=== PATIENT | female | born 1995 | race Caucasian/White ===

== ENCOUNTER 2022-11-30 14:24 | Emergency (ER) | payer OTHER, BC ==
[2022-11-30] MEDS ORDERED: Ibuprofen 200 MG TAB ONE (15:30)
== END 2022-11-30 17:39 | disposition home or self-care (01) ==
LOC: CSHERS 14:24
DX: S27.0XXA Traumatic pneumothorax, initial encounter (principal); S70.12XA Contusion of left thigh, initial encounter; V89.2XXA Person injured in unspecified motor-vehicle accident, traffic, initial encounter
CPT/HCPCS: 71045; 72125